=== PATIENT | male | born 1965 | race African-American/Black ===

== ENCOUNTER → 2019-09-23 | Outpatient (CLI) | payer OTHER ==
--- NOTE | 2019-09-23 09:54 | REP ---
Clinical: Right knee pain. Technique: AP, lateral, bilateral oblique and sunrise views of the right knee. Findings: Lateral and sunrise views best demonstrate increase sclerosis along the anterior patellar margin with calcification at the tendinous insertion suggesting a mild patellar tendinopathy. The tibiofemoral joint space appears relatively age-appropriate. No acute fracture dislocation. No definite effusion. Impression: Findings suggesting mild patellar tendinopathy. Electronically Signed by Evaristo Fowler MD 09/23/2019 09:38 A
== END ==
LOC: M RAD 08:52
PROVIDERS: ATTEND Surgery
DX: M85.88 Other specified disorders of bone density and structure, other site (principal)

== ENCOUNTER → 2020-04-07 | Outpatient (REF) | payer OTHER | LOC: M LAB REF 11:12 | PROVIDERS: ATTEND Surgery | DX: Z01.812 Encounter for preprocedural laboratory examination (principal); Z20.828 Contact with and (suspected) exposure to other viral communicable diseases | CPT/HCPCS: 85660; U0002 ==